=== PATIENT | female | born 1960 | race Asian ===

== ENCOUNTER 2017-02-04 08:43 | Outpatient (CLI) | payer OTHER ==
--- NOTE | 2017-02-04 11:07 | DIAGNOSTIC IMAGING REPORT ---
PROCEDURE: MG BILATERAL SCREENING W/CAD INDICATION: SCREENING TECHNIQUE: Bilateral CC and MLO digital views. COMPARISON: Compared to 60 16, 12/27/2014, and 12/15/2013. FINDINGS: Computer-aided detection applied. Moderately dense. No change. IMPRESSION: 1. Negative mammogram RESULT CODE: 1- Negative. A. A negative report should not delay biopsy if a dominant or clinically suspicious mass is present. 10-15% of cancers are not identified by x-ray. B. A negative report may reinforce clinical impression. C. Adenosis and dense breasts may obscure an underlying neoplasm. D. False positive reports average 6-10%. E.. A yearly screening mammogram is recommended. A reminder letter will be scheduled.
== END 2017-02-04 23:00 | disposition home or self-care (01) ==
LOC: MAM SRH 08:43
DX: Z12.31 Encounter for screening mammogram for malignant neoplasm of breast (principal)